=== PATIENT | female | born 1970 | race Caucasian/White ===

== ENCOUNTER → 2018-06-17 | Outpatient (CLI) | payer OTHER ==
[~2018-06-17] MED LIST: AMOX500 PO; AZIT250 PO; HYDACE5 PO; Norco 5-325 Ta1 EACH PO; OXYACE5T PO; PRED20 PO; SULTRISS
[2018-06-19 01:13] LABS: CHLAMYDIA TRACHOMATIS, NAA Negative (Negative); HPV 16 Negative (Negative); HPV 18 Negative (Negative); HPV OTHER HR TYPES Negative (Negative); NEISSERIA GONORRHOEAE, NAA Negative (Negative)
== END | disposition home or self-care (01) ==
LOC: LAB SHORT 10:15 → LAB 10:15
PROVIDERS: Nurse Practitioner Obstetrics & Gynecology
DX: Z01.419 Encounter for gynecological examination (general) (routine) without abnormal findings (principal); Z11.3 Encounter for screening for infections with a predominantly sexual mode of transmission
CPT/HCPCS: 87491; 87591; 87624; G0123

== ENCOUNTER → 2018-08-26 | Outpatient (CLI) | payer OTHER ==
[2018-08-26 09:07] LABS: Adenovirus F 40/41 Not Detected (NOT DETECT); Astrovirus Not Detected (NOT DETECT); Campylobacter Sp Not Detected (NOT DETECT); Cryptosporidium Not Detected (NOT DETECT); Cyclospora Cayetanensis Not Detected (NOT DETECT); E. Coli O157 Not Detected (NOT DETECT); Entamoeba Histolytica Not Detected (NOT DETECT); Enteroaggregative E. coli-EAEC Not Detected (NOT DETECT); Enteropathogenic E. coli-EPEC Not Detected (NOT DETECT); Enterotoxigenic E. coli-ETEC Not Detected (NOT DETECT); Giardia Lamblia Not Detected (NOT DETECT); Norovirus GI/GII Not Detected (NOT DETECT); Plesiomonas Shigelloides Not Detected (NOT DETECT); Rotavirus A Not Detected (NOT DETECT); Salmonella Sp Not Detected (NOT DETECT); Sapovirus Not Detected (NOT DETECT); Shiga Toxin-prod E. coli-STEC Not Detected (NOT DETECT); Shigella/Enteroin E. coli-EIEC Not Detected (NOT DETECT); Vibrio Cholerae Not Detected (NOT DETECT); Vibrio Sp Not Detected (NOT DETECT); Yersinia Enterocolitica Not Detected (NOT DETECT)
[2018-08-26 14:31] LABS: Stool Occult Bld Immuno 1 Negative (NEGATIVE)
== END | disposition home or self-care (01) ==
LOC: LAB SHORT 09:06 → LAB 09:06 → LAB FUT 08-20 09:55
PROVIDERS: Family Medicine
DX: R19.7 Diarrhea, unspecified (principal)
CPT/HCPCS: 87338; 87507; G0328

== ENCOUNTER → 2018-11-15 | Outpatient (CLI) | payer OTHER | END | disposition home or self-care (01) | LOC: PLD 13:23 → LAB SHORT 13:23 | DX: N95.0 Postmenopausal bleeding (principal) | CPT/HCPCS: 88305 ==

== ENCOUNTER → 2018-12-11 | Outpatient (CLI) | payer OTHER ==
[2018-12-12 08:28] LABS: Candida species (DNA Probe) Positive (NEGATIVE); G. vaginalis (DNA Probe) Negative (NEGATIVE); T. vaginalis (DNA Probe) Negative (NEGATIVE)
== END | disposition home or self-care (01) ==
LOC: LAB SHORT 11:24 → LAB 11:24
PROVIDERS: Obstetrics & Gynecology
DX: N76.0 Acute vaginitis (principal)
CPT/HCPCS: 87480; 87510; 87660

== ENCOUNTER → 2019-01-30 | Outpatient (CLI) | payer OTHER ==
[~2019-01-30] MED LIST changes: +ESTR2 PO; +PROG100
[2019-01-30 15:31] LABS: Source, Urine Clean Catch
[2019-01-30 18:17] LABS: Appearance, Urine Hazy (Clear); Bilirubin, Urine Neg (Neg); Blood, Urine 4+ (Neg); Color, Urine Yellow (P-Yellow); Glucose Qualitative, Urine Neg (Neg); Ketones, Urine Neg (Neg); Leukocyte Esterase, Urine 2+ (Neg); Nitrite, Urine Neg (Neg); Protein, Urine 1+ (Neg); Specific Gravity, Urine 1.015 (1.003-1.022); Urobilinogen, Urine NORM (Normal)
[2019-01-30 18:36] LABS: Bacteria Many /hpf; Squamous Epithelial Cells Few /hpf (Few); White Blood Cells, Urine 25-50 /hpf (0-5)
== END | disposition home or self-care (01) ==
LOC: LAB SHORT 13:43 → LAB 13:43
PROVIDERS: Obstetrics & Gynecology
DX: R30.0 Dysuria (principal)
CPT/HCPCS: 81001; 87077; 87086; 87186

== ENCOUNTER 2019-06-05 11:44 | Day surgery (SDC) | payer OTHER ==
[~2019-06-05] VITALS: Ht 160 cm; Wt 59.0 kg
--- NOTE | 2019-06-05 14:05 | NUR ---
06/05/19 Lucille5 Jac Tatum PT RESTING ON RECLINER. FAMILY/FRIEND AT CHAIRSIDE. PT DENIES ANY PAIN OR NAUSEA. VS WNL. WILL CONTINUE TO MONITOR.
== END 2019-06-05 14:25 | disposition home or self-care (01) ==
LOC: ORSCSDS 11:44
PROVIDERS: Obstetrics & Gynecology
PROC: 0UB98ZZ Excision of Uterus, Via Natural or Artificial Opening Endoscopic (ICD-10-PCS; principal; 2019-06-05 13:00)
DX: N95.0 Postmenopausal bleeding (principal); D25.9 Leiomyoma of uterus, unspecified; F41.8 Other specified anxiety disorders; Z79.899 Other long term (current) drug therapy; F17.210 Nicotine dependence, cigarettes, uncomplicated
CPT/HCPCS: 88305; J1100; J1885; J2250; J2405; J2704; J3010

== ENCOUNTER → 2019-06-16 | Outpatient (CLI) | payer OTHER ==
[2019-06-16 11:27] LABS: Source, Urine Clean Catch
[2019-06-16 12:47] LABS: Bilirubin, Urine Neg (Neg); Blood, Urine 1+ (Neg); Glucose Qualitative, Urine Neg (Neg); Ketones, Urine Neg (Neg); Leukocyte Esterase, Urine 1+ (Neg); Nitrite, Urine Neg (Neg); Protein, Urine Neg (Neg); Urobilinogen, Urine NORM (Normal)
[2019-06-16 12:59] LABS: Appearance, Urine Clear (Clear); Color, Urine Yellow (P-Yellow)
[2019-06-16 13:00] LABS: Bacteria Few /hpf; Red Blood Cells, Urine 0-2 /hpf (0-2); Squamous Epithelial Cells Few /hpf (Few); White Blood Cells, Urine 50-100 /hpf (0-5)
== END | disposition home or self-care (01) ==
LOC: LAB SHORT 11:00 → LAB 11:00
PROVIDERS: Obstetrics & Gynecology
DX: R30.9 Painful micturition, unspecified (principal)
CPT/HCPCS: 81001

== ENCOUNTER 2020-11-16 09:29 | Day surgery (SDC) | payer BC ==
[~2020-11-16] VITALS: Ht 160 cm; Wt 58.5 kg
[2020-11-16] MEDS ORDERED: MULVITA (09:56)
== END 2020-11-16 11:11 | disposition home or self-care (01) ==
LOC: ORSCSDS 09:29
PROVIDERS: Internal Medicine Gastroenterology
PROC: 0DBK8ZX Excision of Ascending Colon, Via Natural or Artificial Opening Endoscopic, Diagnostic (ICD-10-PCS; principal; 2020-11-16 10:45)
PROC: 0DBH8ZX Excision of Cecum, Via Natural or Artificial Opening Endoscopic, Diagnostic (ICD-10-PCS; principal; 2020-11-16 10:45)
DX: Z12.11 Encounter for screening for malignant neoplasm of colon (principal); D12.0 Benign neoplasm of cecum; D12.2 Benign neoplasm of ascending colon; K57.30 Diverticulosis of large intestine without perforation or abscess without bleeding; K64.8 Other hemorrhoids; Z79.899 Other long term (current) drug therapy
CPT/HCPCS: 88305; J2704; J7120

== ENCOUNTER → 2021-04-12 | Outpatient (CLI) | payer BC ==
[~2021-04-12] MED LIST changes: +MULVITA
== END | disposition home or self-care (01) ==
LOC: LAB SHORT 15:51 → LAB 15:51
DX: L72.0 Epidermal cyst (principal)
CPT/HCPCS: 88304

== ENCOUNTER 2021-07-21 09:10 | Day surgery (SDC) | payer BC ==
[~2021-07-21] VITALS: Ht 160 cm; Wt 61.2 kg
[~2021-07-21 09:10] MED LIST changes: -ESTR2 PO; +ESTRADIOL0.5 MG PO; -MULVITA; +MULVITA PO
--- NOTE | 2021-07-21 09:39 | NUR ---
Ambulatory in Day Surgery History, Chart, Medications and Allergies reviewed before start of procedure.Patient confirms NPO status and agrees with scheduled surgery. Lungs clear T/O to Auscultation. Pre-Op teaching done. Pt verbalizes understanding. Patient reports completing Chlorhexadine shower X2 prior to admission to hospital.
--- NOTE | 2021-07-21 17:15 | NUR ---
RON CATHETER DC'D. PT SLEEPING WHEN UNDISTURBED. DENIES NEED FOR PAIN MEDICATION AT THIS TIME. APRIL SIPS WITHOUT NAUSEA. DEMARCUS PAD WITH NICKEL SIZED AREA BLOODY DRAINAGE
--- NOTE | 2021-07-22 05:35 | NUR ---
SHIFT SUMMARY: PT POD#0 FOR AN LAVH. LAP SITES C/D/I WITH DERMABOND. ABD MIDLY DISTENDED. PT REPORTS PASSING FLATUS THIS MORNING. TOLERATING A SMALL AMOUNT OF PO. DENIES N/V. PAIN BEING MANAGED WITH PERCOCET AND TORADOL PER EMAR. PT AMBULATING TO BATHROOM THROUGHOUT NIGHT. VOIDING WELL. SCANT AMOUNT OF BLOODY DRG PRESENT ON DEMARCUS PAD. PLAN FOR DISCHARGE TODAY.
[2021-07-22 06:03] LABS: BASOPHILS ABSOLUTE AUTO 0.02 K/mm3 (0.00-0.23); BASOPHILS PERCENT AUTO 0 % (0-2); EOSINOPHILS ABSOLUTE AUTO 0.01 K/mm3 (0.00-0.68); EOSINOPHILS PERCENT AUTO 0 % (0-6); Hematocrit 36.3 % (33.0-51.0); Hemoglobin 12.4 g/dL (11.5-16.0); IMMATURE GRAN ABSOLUTE AUTO 0.04 K/mm3 (0.00-0.10); IMMATURE GRAN PERCENT AUTO 0 % (0-1); LYMPHOCYTES ABSOLUTE AUTO 2.05 K/mm3 (0.84-5.20); LYMPHOCYTES PERCENT AUTO 15 % (21-46); MONOCYTES ABSOLUTE AUTO 0.96 K/mm3 (0.16-1.47); MONOCYTES PERCENT AUTO 7 % (4-13); Mean Corpuscular HGB 33.5 pg (26.0-34.0); Mean Corpuscular HGB Conc 34.2 g/dL (31.5-36.5); Mean Corpuscular Volume 98 fL (80-100); Mean Platelet Volume 10.1 fL (9.1-12.4); NEUTROPHILS ABSOLUTE AUTO 10.65 K/mm3 (1.96-9.15); NEUTROPHILS PERCENT AUTO 78 % (41-73); Platelet Count 273 K/mm3 (150-400); RDW Standard Deviation 46.1 fL (35.1-46.3); White Blood Cell Count 13.73 K/mm3 (4.00-11.30)
[2021-07-22] MEDS ORDERED: Colace100 MG PO (10:23)
[2021-07-22] MEDS ORDERED: IBUP800 PO (10:24)
[2021-07-22] MEDS ORDERED: DULCOLAX400 MG/5 M PO (10:26)
[2021-07-22] MEDS ORDERED: Percocet 5-3251 EACH PO (10:30)
[2021-07-22] MEDS ORDERED: PROM12.5S PR (10:30)
[2021-07-22] MEDS ORDERED: SENN187 PO (10:31)
[2021-07-22] MEDS ORDERED: SIME80CH PO (10:32)
--- NOTE | 2021-07-22 11:11 | NUR ---
DISCHARGE PATIENT DISCHARGED IN STABLE CONDITION HOME. PERIPHERAL IVS REMOVED. PATIENT VERBALIZED UNDERSTANDING OF INSTRUCTIONS. ALL BELONGINGS PACKED AND SENT WITH PATIENT.
== END 2021-07-22 10:54 | disposition home or self-care (01) ==
LOC: ORSCMMR 09:10 → ORD 11:00 → SURS 15:22 → ORSCMMR 15:22 → SURS 07-22 10:54
PROVIDERS: Obstetrics & Gynecology
PROC: 0UT74ZZ Resection of Bilateral Fallopian Tubes, Percutaneous Endoscopic Approach (ICD-10-PCS; principal; 2021-07-21 11:00)
PROC: 0UT94ZZ Resection of Uterus, Percutaneous Endoscopic Approach (ICD-10-PCS; principal; 2021-07-21 11:00)
PROC: 8E0W4CZ Robotic Assisted Procedure of Trunk Region, Percutaneous Endoscopic Approach (ICD-10-PCS; principal; 2021-07-21 11:00)
PROC: 0UT24ZZ Resection of Bilateral Ovaries, Percutaneous Endoscopic Approach (ICD-10-PCS; principal; 2021-07-21 11:00)
PROC: 0U5F4ZZ Destruction of Cul-de-sac, Percutaneous Endoscopic Approach (ICD-10-PCS; principal; 2021-07-21 11:00)
DX: N95.0 Postmenopausal bleeding (principal); D25.0 Submucous leiomyoma of uterus; N94.6 Dysmenorrhea, unspecified; N80.0 Endometriosis of uterus; K66.0 Peritoneal adhesions (postprocedural) (postinfection); N83.292 Other ovarian cyst, left side; N83.291 Other ovarian cyst, right side; Z87.891 Personal history of nicotine dependence; Z79.899 Other long term (current) drug therapy
CPT/HCPCS: 58571; 58662; S2900; 36415; 85025; 88305; 88307; A9270; J0690; J1100; J1885; J2250; J2405; J2704; J2710; J3010; J7120

== ENCOUNTER → 2022-05-10 | Outpatient (CLI) | payer OTHER ==
[~2022-05-10] MED LIST changes: +Colace100 MG PO; +DULCOLAX400 MG/5 M PO; +IBUP800 PO; +PROM12.5S PR; +Percocet 5-3251 EACH PO; +SENN187 PO; +SIME80CH PO
== END | disposition home or self-care (01) ==
LOC: LAB SHORT 08:27 → LAB 08:27
DX: N39.0 Urinary tract infection, site not specified (principal)
CPT/HCPCS: 87077; 87086; 87186